=== PATIENT | female | born 1965 | race Caucasian/White ===

== ENCOUNTER 2017-07-09 14:51 | Emergency (ER) | payer SELFPAY ==
[~2017-07-09] VITALS: Ht 167.6 cm; Wt 76.0 kg
[2017-07-09 15:18] VITALS: BP 124/72; PULSE 81; RESP 16; TEMP 98; O2SAT 97
[2017-07-09] MEDS ORDERED: HYDR-3133 PO (16:03)
[2017-07-09] MEDS ORDERED: BENZ1CAP54 PO (16:03)
[2017-07-09] MEDS ORDERED: ZANA4CAP PO (16:03)
[2017-07-09] MEDS ORDERED: METO1TAB43 PO (16:03)
[2017-07-09] MEDS ORDERED: GABA600T PO (16:03)
[2017-07-09] MEDS ORDERED: AMIT100T2 PO (16:03)
[2017-07-09] MEDS ORDERED: CLON0.1T PO (16:03)
[2017-07-09] MEDS ORDERED: CITA10TA4 PO (16:03)
[2017-07-09] MEDS ORDERED: VENTAER INH (16:04)
--- NOTE | 2017-07-09 16:06 | PD ---
HPI Chief Complaint: General Weakness Time Seen by Provider: 15:39 Travel History International Travel<30 days: No Contact w/Intl Traveler<30days: No Traveled to known affect area: No History of Present Illness HPI 52yo F with PMH of fibromyalgia, chronic abdominal pain, arthritis here with multiple complaints. Pt said she is coughing and has congestion for a little over a week. Symptoms has actually improve after finishing amoxicillin yesterday. However, pt said her bathroom ceiling fell down and exposed what appears to be black mold and she is worry she is exposed to it. Has sharp, midsternal chest pain with coughing. Denies any fever, sob, n/v, diarrhea, focal weakness or numbness. Pt has had chronic abdominal pain for 1 year. Pt said she feels she has been shaky but denies any alcohol abuse. PFSH Past Medical History Cardiovascular Problems: Yes (htn on meds) High Cholesterol: Yes Diabetes: Yes (type 2) Patient Takes Glucophage: No Fibromyalgia: Yes Hypertension: Yes Kidney Stones: Yes Respiratory: Yes (copd, asthma) Tetanus Vaccination: Unknown Influenza Vaccination: No ?: Not Past Surgical History Appendectomy: Yes Cholecystectomy: Yes Genitourinary Surgery: Yes (kidney stent) Hysterectomy: Yes Other Surgery: Yes (3.5FT INTESTINES REMOVED) Social History Alcohol Use: No Tobacco Use: Yes (1/2ppd) Substance Use: No Allergies-Medications (Allergen,Severity, Reaction): Coded Allergies: Sulfa (Sulfonamide Antibiotics) (Verified Allergy, Intermediate, nausea, ) Reported Meds & Prescriptions Reported Meds & Active Scripts Active Reported Ventolin Hfa 18 GM Inh (Albuterol Sulfate) 90 Mcg/Act Aer 1 Puff INH Q4H PRN Clonidine (Clonidine HCl) 0.1 Mg Tab 0.1 Mg PO BID Hydroxyzine HCl 25 Mg Tab 25 Mg PO QID Amitriptyline (Amitriptyline HCl) 100 Mg Tab 100 Mg PO HS Metoprolol Succinate ER 24 HR (Metoprolol Succinate) 100 Mg Tab 100 Mg PO DAILY Benzonatate 100 Mg Cap 100 Mg PO TID PRN Zanaflex (Tizanidine HCl) 4 Mg Cap 4 Mg PO TID Gabapentin 600 Mg Tab 600 Mg PO TID Citalopram (Citalopram Hydrobromide) 10 Mg Tab 10 Mg PO DAILY Review of Systems Except as stated in HPI: all other systems reviewed are Neg Physical Exam Narrative GENERAL: 52yo F not in distress. SKIN: Focused skin assessment warm/dry. HEAD: Atraumatic. Normocephalic. EYES: Pupils equal and round. No scleral icterus. No injection or drainage. ENT: No nasal bleeding or discharge. Mucous membranes pink and moist. NECK: Trachea midline. No JVD. CARDIOVASCULAR: Regular rate and rhythm. No murmur appreciated. RESPIRATORY: No accessory muscle use. Clear to auscultation. Breath sounds equal bilaterally. GASTROINTESTINAL: Abdomen soft, non-tender, nondistended. Hepatic MUSCULOSKELETAL: No obvious deformities. No clubbing. No cyanosis. No edema. NEUROLOGICAL: Awake and alert. No obvious cranial nerve deficits. Motor grossly within normal limits in all extremities. Sensation intact. Normal speech. PSYCHIATRIC: Anxious appearing. Data Data Last Documented VS Vital Signs Date Time Temp Pulse Resp B/P (MAP) Pulse Ox O2 Delivery O2 Flow Rate FiO2 07/09/17 16:04 Room Air 07/09/17 15:18 98.0 81 16 124/72 (89) 97 Orders Orders Complete Blood Count With Diff (07/09/17 15:57) Basic Metabolic Panel (Bmp) (07/09/17 15:57) Magnesium (Mg) (07/09/17 15:57) Troponin I (07/09/17 15:57) Chest, Single Ap (07/09/17 ) Electrocardiogram (07/09/17 ) Lorazepam Inj (Ativan Inj) (07/09/17 16:15) Labs Laboratory Tests Test 07/09/17 16:15 White Blood Count 7.7 TH/MM3 Red Blood Count 4.17 MIL/MM3 Hemoglobin 12.8 GM/DL Hematocrit 37.2 % Mean Corpuscular Volume 89.2 FL Mean Corpuscular Hemoglobin 30.7 PG Mean Corpuscular Hemoglobin Concent 34.5 % Red Cell Distribution Width 13.8 % Platelet Count 328 TH/MM3 Mean Platelet Volume 7.0 FL Neutrophils (%) (Auto) 50.8 % Lymphocytes (%) (Auto) 36.0 % Monocytes (%) (Auto) 8.0 % Eosinophils (%) (Auto) 4.5 % Basophils (%) (Auto) 0.7 % Neutrophils # (Auto) 3.9 TH/MM3 Lymphocytes # (Auto) 2.8 TH/MM3 Monocytes # (Auto) 0.6 TH/MM3 Eosinophils # (Auto) 0.3 TH/MM3 Basophils # (Auto) 0.1 TH/MM3 CBC Comment DIFF FINAL Differential Comment Blood Urea Nitrogen 12 MG/DL Creatinine 0.60 MG/DL Random Glucose 94 MG/DL Calcium Level 8.4 MG/DL Magnesium Level 2.0 MG/DL Sodium Level 137 MEQ/L Potassium Level 4.9 MEQ/L Chloride Level 105 MEQ/L Carbon Dioxide Level 25.6 MEQ/L Anion Gap 6 MEQ/L Estimat Glomerular Filtration Rate 104 ML/MIN Troponin I LESS THAN 0.02 NG/ML MDM Medical Decision Making Medical Screen Exam Complete: Yes Emergency Medical Condition: Yes Interpretation(s) EKG; NSR 81bpm. Normal axis. No ST segment elevation or depression. Differential Diagnosis Anxiety vs. bronchitis vs. atypical chest pain vs. electrolyte abnormalities Narrative Course 52yo F with fibromyalgia here with multiple complaints. Labs reviewed, no leukocytosis. H/H normal. Troponin negative. BMP unremarkable. magnesium normal. CXR negative. Pt appears very anxious and given ativan. Pt reevaluated at bedside and feels much better. Do not think chest pain is cardiac. Return precautions given. Diagnosis Primary Impression: Cough Patient Instructions: General Instructions Departure Forms: Tests/Procedures Additional Instructions: Please follow up with your primary care physician in 2-3 days. Return to the ED if symptoms worsen. Med/Other Pt SpecificInfo: No Change to Meds Disposition: 01 DISCHARGE HOME Condition: Stable Ting Petersen DO Jul 09, 2017 16:06
[2017-07-09] MEDS ORDERED: LORazepam 2 MG/ML VIAL IV PUSH ONE (16:15)
[2017-07-09 16:26] LABS: AUTOMATED NEUTROPHIL # 3.9 TH/MM3 (1.8-7.7); BASOPHIL # 0.1 TH/MM3 (0-0.2); BASOPHIL % 0.7 % (0.0-2.0); EOSINOPHIL # 0.3 TH/MM3 (0-0.4); EOSINOPHIL % 4.5 % (0.0-4.0); HEMATOCRIT 37.2 % (35.0-46.0); HEMOGLOBIN 12.8 GM/DL (11.6-15.3); LYMPHOCYTE # 2.8 TH/MM3 (1.0-4.8); MEAN CELL VOLUME 89.2 FL (80.0-100.0); MEAN CORPUSCULAR HEMOGLOBIN 30.7 PG (27.0-34.0); MEAN CORPUSCULAR HGB CONC 34.5 % (32.0-36.0); MONOCYTE # 0.6 TH/MM3 (0-0.9); NEUT % 50.8 % (16.0-70.0); PLATELET COUNT 328 TH/MM3 (150-450); RED BLOOD COUNT 4.17 MIL/MM3 (4.00-5.30); RED CELL DISTRIBUTION WIDTH 13.8 % (11.6-17.2); WHITE BLOOD COUNT 7.7 TH/MM3 (4.0-11.0)
--- NOTE | 2017-07-09 16:33 | RADRPT ---
EXAM DATE/TIME: 07/09/2017 16:18 [facility] COMPARISON: No previous studies available for comparison. INDICATIONS : General weakness. MEDICAL HISTORY : Hypertension. Diabetes mellitus type II. SURGICAL HISTORY : None. ENCOUNTER: Initial ACUITY: 1 day PAIN SCORE: 0/10 LOCATION: Bilateral chest FINDINGS: A single view of the chest demonstrates the lungs to be symmetrically aerated without evidence of mas s, infiltrate or effusion. The cardiomediastinal contours are unremarkable. Osseous structures are intact. CONCLUSION: No acute disease. David Lara MD on July 09, 2017 at 16:31 Board Certified Radiologist. This report was verified electronically.
[2017-07-09 16:41] LABS: CHLORIDE 105 MEQ/L (98-107); SODIUM (NA) 137 MEQ/L (136-145)
[2017-07-09 16:43] LABS: CALCIUM 8.4 MG/DL (8.5-10.1)
[2017-07-09 16:44] LABS: BICARBONATE 25.6 MEQ/L (21.0-32.0); BLOOD UREA NITROGEN 12 MG/DL (7-18); GLUCOSE,RANDOM 94 MG/DL (74-106)
[2017-07-09 16:47] LABS: GLOMERULAR FILTRATION RATE 104 ML/MIN (>89)
[2017-07-09 16:52] LABS: TROPONIN I LESS THAN 0.02 NG/ML (0.02-0.05)
[2017-07-09 19:03] VITALS: BP 142/90
--- NOTE | 2017-07-09 23:50 | EKG ---
Date Performed: 07/09/2017 Time Performed: 16:17:35 PTAGE: 52 years EKG: Sinus rhythm NORMAL ECG NO PREVIOUS TRACING DOCTOR: Tommy Anne Interpretating Date/Time 07/09/2017 23:49:43
== END 2017-07-09 19:09 | disposition home or self-care (01) ==
LOC: PHED 14:51
DX: R05 Cough (principal); F41.9 Anxiety disorder, unspecified; I10 Essential (primary) hypertension; E78.00 Pure hypercholesterolemia, unspecified; E11.9 Type 2 diabetes mellitus without complications; J44.9 Chronic obstructive pulmonary disease, unspecified; M79.7 Fibromyalgia; M19.90 Unspecified osteoarthritis, unspecified site; F17.210 Nicotine dependence, cigarettes, uncomplicated; Z87.442 Personal history of urinary calculi; Z88.2 Allergy status to sulfonamides; Z79.899 Other long term (current) drug therapy
CPT/HCPCS: 71045; 80048; 83735; 84484; 85025; 93005; 96374; 99285; J2060